=== PATIENT | female | born 1960 | race Caucasian/White ===

== ENCOUNTER 2024-12-15 06:29 | Day surgery (SDC) | payer OTHER, SELFPAY | END 2024-12-15 12:08 | disposition home or self-care (01) | LOC: GI 06:29 | PROVIDERS: ATTENDING PHYSICIAN Student in an Organized Health Care Education/Training Program | DX: K44.9 Diaphragmatic hernia without obstruction or gangrene (principal); Z87.19 Personal history of other diseases of the digestive system; K31.A19 Gastric intestinal metaplasia without dysplasia, unspecified site; K31.A12 Gastric intestinal metaplasia without dysplasia, involving the body (corpus); K29.50 Unspecified chronic gastritis without bleeding; Z80.0 Family history of malignant neoplasm of digestive organs | CPT/HCPCS: 43239; 88305; 88342 ==

== ENCOUNTER → 2025-01-06 07:30 | Outpatient (REF) | payer OTHER, SELFPAY | LOC: RAD 07:30 | PROVIDERS: ATTENDING PHYSICIAN Student in an Organized Health Care Education/Training Program; FAMILY PHYSICIAN Family Medicine | DX: R68.81 Early satiety (principal) | CPT/HCPCS: 78264; A9541 ==

== ENCOUNTER → 2025-01-19 06:52 | Outpatient (REF) | payer OTHER, SELFPAY | LOC: RAD 06:52 | PROVIDERS: ATTENDING PHYSICIAN Student in an Organized Health Care Education/Training Program; FAMILY PHYSICIAN Family Medicine | DX: R10.10 Upper abdominal pain, unspecified (principal) | CPT/HCPCS: 74177; Q9967 ==

== ENCOUNTER 2025-07-06 06:19 | Day surgery (SDC) | payer OTHER, SELFPAY ==
[2025-07-06 07:35] VITALS: BMI 20.6
[2025-07-06 07:46] VITALS: BMI 20.6
[2025-07-06 07:47] VITALS: BP 112/84
[2025-07-06 09:57] VITALS: BP 101/72
[2025-07-06 10:12] VITALS: BP 116/74
[2025-07-06 10:27] VITALS: BP 117/78
== END 2025-07-06 10:39 | disposition home or self-care (01) ==
LOC: GI 06:19
PROVIDERS: ATTENDING PHYSICIAN Student in an Organized Health Care Education/Training Program
DX: K31.84 Gastroparesis (principal); K44.9 Diaphragmatic hernia without obstruction or gangrene; K31.A0 Gastric intestinal metaplasia, unspecified; K31.A19 Gastric intestinal metaplasia without dysplasia, unspecified site; K29.50 Unspecified chronic gastritis without bleeding; K31.A13 Gastric intestinal metaplasia without dysplasia, involving the fundus; K31.A12 Gastric intestinal metaplasia without dysplasia, involving the body (corpus); Z80.0 Family history of malignant neoplasm of digestive organs
CPT/HCPCS: 43239; 43236; 88305; 88342; J0585